=== PATIENT | female | born 1975 | race Two or more races ===

== ENCOUNTER 2018-08-29 21:28 | Emergency (ER) | payer SELFPAY ==
[~2018-08-29] VITALS: Ht 167.6 cm; Wt 77.1 kg
--- NOTE | 2018-08-29 21:33 | NUR ---
ED Nurse Note: pt brought in by MARK c/c ETOH intoxication, pt states she drinks because it makes her happy, noted slurred speech, will cont monitor. vss.
--- NOTE | 2018-08-29 21:44 | Emergency Room Report ---
History of Present Illness General Chief Complaint: Alcohol Intoxication Source: Patient Present Illness HPI This is a 43-year-old female with a history of alcohol abuse. She presents with chief complaint of alcohol intoxication. She just flew in from [place] to [facility]. She was on her way to rehabilitation facility. She's been drinking today. She was too intoxicated so the [employer] commercial driver called 911. She does have a history of seizure. There is questionable seizure activity. Patient denies any complaint. No suicidal thoughts or homicidal thought. Denies any other complaint. She said that her seizure is when she go into alcohol withdrawal. Allergies: Coded Allergies: No Known Allergies (Unverified , 08/29/18) Patient History Past Medical History: see triage record, old chart reviewed Past Surgical History: none Pertinent Family History: none Social History: Reports: alcohol use Last Menstrual Period: UNK Now: No Immunizations: other Reviewed Nursing Documentation: PMH: Agreed; PSxH: Agreed Nursing Documentation-PMH Past Medical History: No History, Except For Hx Seizures: Yes Review of Systems Eye: Denies: eye pain, blurred vision ENT: Denies: ear pain, nose congestion, throat swelling Respiratory: Denies: cough, shortness of breath Cardiovascular: Denies: chest pain, palpitations Gastrointestinal: Denies: abdominal pain, diarrhea, nausea, vomiting Musculoskeletal: Denies: back pain, joint pain Skin: Denies: rash Neurological: Denies: headache, numbness Endocrine: Denies: increased thirst, increased urine Hematologic/Lymphatic: Denies: easy bruising All Other Systems: negative except mentioned in HPI Physical Exam Vital Signs Date Time Temp Pulse Resp B/P (MAP) Pulse Ox O2 Delivery O2 Flow Rate FiO2 08/29/18 21:23 98.8 98 14 99 Room Air vitals normal Sp02 EP Interpretation: reviewed, normal General Appearance: well appearing, no apparent distress, alert, other - Intoxicated Head: normocephalic, atraumatic Eyes: bilateral eye PERRL, bilateral eye EOMI ENT: hearing grossly normal, normal pharynx Neck: full range of motion, supple, no meningismus Respiratory: chest non-tender, lungs clear, normal breath sounds Cardiovascular #1: regular rate, rhythm, no murmur Gastrointestinal: normal bowel sounds, non tender, no mass, no organomegaly, no bruit, non-distended Musculoskeletal: back normal, normal range of motion Psychiatric: mood/affect normal Skin: warm/dry Medical Decision Making Diagnostic Impression: Primary Impression: Acute alcoholic intoxication Qualified Codes: F10.920 - Alcohol use, unspecified with intoxication, uncomplicated ER Course Patient presents with alcohol intoxication. No evidence of any trauma. She has no oral trauma that I see to indicate seizure. We'll observe until clinical sobriety. The rehabilitation center call and will pick her up when she is stable to be discharged. Last Vital Signs Date Time Temp Pulse Resp B/P (MAP) Pulse Ox O2 Delivery O2 Flow Rate FiO2 08/29/18 21:23 98.8 98 14 99 Room Air Status: improved Disposition: HOME, SELF-CARE Condition: Stable Scripts No Active Prescriptions or Reported Meds Patient Instructions: Alcohol Intoxication, [id number] Additional Instructions: Follow-up with rehabilitation as scheduled. Return if worse. Flip Kwok MD August 29, 2018 21:44
--- NOTE | 2018-08-29 21:50 | NUR ---
ED Nurse Note: PT TO BE PLACED TO TREATMENT CENTER AFTER DISCHARGE. REINA BLAKE [facility]. [phone] AFTER HOURS PHONE # [phone]
[2018-08-29 22:23] VITALS: BP 140/88
--- NOTE | 2018-08-29 23:40 | NUR ---
ED Nurse Note: pt sleeping, warm blanket provided for comfort, vss, will cont monitor. no sx distress noted.
[2018-08-30 01:00] VITALS: BP 121/87
--- NOTE | 2018-08-30 01:19 | NUR ---
ED Nurse Note: pt currently sleeping at this time, vss, resp even and unlabored on RA, will cont monitor.
--- NOTE | 2018-08-30 04:11 | NUR ---
ED Nurse Note: Pt is fully alert and oriented x 4 and safeley ambulatory. Spoke with Yamil at [facility] - they are expecting the patient, and will have an [employer] transport her. However, Yamil states that Becky comes in at [id number], and "it would be better to wait, until she comes in."
--- NOTE | 2018-08-30 05:30 | NUR ---
ED Nurse Note: pt now awake, reports she doesn't remember where she was but states she was with her friend, pt advised she will be going to the rehab facility and transport will be sent by the facility. pt AA&ox4, calm and cooperative, vss, resp even and unlabored on RA, breakfast ordered per protocol. will cont monitor.
[2018-08-30 05:31] VITALS: BP 128/67
--- NOTE | 2018-08-30 06:01 | NUR ---
ED Nurse Note: Follow up phone call to [facility] - message left.
--- NOTE | 2018-08-30 06:05 | NUR ---
ED Nurse Note: Becky mijares [place] returned call, she will make arrangements for transportation, and will call back in ~ one hour with plan.
--- NOTE | 2018-08-30 07:11 | NUR ---
ED Nurse Note: pt cleared to be d/c per Becky MUHAMMAD from facility called and stated she called [employer] for pt, pt discharge and aftercare instruction provided, pt education done via discussion and handout, pt advised to follow up with pcp or return to ed if changes in condition, pt verbalized understanding and agrees with plan, vss, ambulatory w/ steady gait, left w/ all belongings. ID band removed.
[2018-08-30 07:15] VITALS: BP 121/60
== END 2018-08-30 07:11 | disposition home or self-care (01) ==
LOC: EDBD 21:28 → EMR 22:00
DX: F10.129 Alcohol abuse with intoxication, unspecified (principal); G40.909 Epilepsy, unspecified, not intractable, without status epilepticus
CPT/HCPCS: 99283